=== PATIENT | female | born 1955 | race Caucasian/White ===

== ENCOUNTER 2020-11-23 09:14 | Emergency (ER) | payer OTHER, SELFPAY ==
--- NOTE | 2020-11-23 08:45 | ECG_ITS ---
[facility], 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 Measurements Intervals [place] Rate: 102 P: 27 IL: 142 QRS: -7 QRSD: 74 T: 179 QT: 396 QTc: 517 Interpretive Statements SINUS TACHYCARDIA LEFT VENTRICULAR HYPERTROPHY AND ST-T CHANGE [VOLTAGE CRITERIA PLUS ST/T ABNORMALITY] POSSIBLE SEPTAL MYOCARDIAL INFARCTION , OF INDETERMINATE AGE [30 ms Q WAVE IN V1/V2] No previous ECG available for comparison Electronically Signed On 11-23-2020 21:31:10 SAFETY INVESTIGATOR/CAUSE ANALYST by Gerald Goldberg M.D. [email or web address].Entassotyler holmes memorial hospitalITN Energy Systemsmemorial health system.[employer]/store/NU/[id number] f
[2020-11-23 09:16] VITALS: BP 151/111; PULSE 116; RESP 18; TEMP 36.8; O2SAT 97; BMI 31.1
[2020-11-23] MEDS: lactated ringers 1,000 ML 999 ML IV (09:47)
[2020-11-23] MEDS: ondansetron 2 mg/ML SDV 2 mL 4 MG IVP (09:49)
[2020-11-23 09:59] LABS: Hematocrit 37.4 % (37.0-47.0); Hemoglobin 12.9 g/dL (11.5-15.3); Mean Corpuscular HGB Conc 34.5 g/dL (30.0-36.0); Mean Corpuscular Hemoglobin 30.8 pg (28.0-34.0); Mean Corpuscular Volume 89.3 fL (81-99); Mean Platelet Volume 9.3 fL (7.4-10.4); Platelet Count 288 10^3/cmm (130-400); Red Blood Count 4.19 10^6/uL (4.1-5.3); Red Cell Distribution Width 12.1 % (12.1-15.1); White Blood Count 13.5 10^3/uL (4.0-10.0)
[2020-11-23 10:11] VITALS: BP 131/79; PULSE 82; RESP 18; TEMP 36.8; O2SAT 98
--- NOTE | 2020-11-23 10:14 | ED_ITS ---
HPI - Chest Pain General: Chief Complaint: Chest Pain Stated Complaint: N/V, diarrhea since Mon. Time Seen by Provider: 11/23/20 09:16 History of Present Illness: HPI narrative: 64-year-old female in with concerns of nausea vomiting and diarrhea for the past 2 days. The patient has not felt well for the past couple weeks ever since starting lisinopril hydrochlorothiazide but the nausea vomiting diarrhea just started 2 days ago. She's had multiple episodes of nonbloody diarrhea today and 3-4 discrete episodes of nonbloody nonbilious vomit today. She hasn't run a fever. No recent antibiotics. She did have 1 prior episode in the remote past similar to this that was undiagnosed. Nobody else is sick. She hasn't eaten any questionable food or any other concerning symptoms. Associated symptoms: Reports nausea and vomiting; Deny abdominal pain, dyspnea or fever(s) Review of Systems General: Reports: 10 or more systems reviewed and unremarkable except in HPI and below Const: Denies: fever(s) or chills ENMT: Denies: throat pain Card: Denies: chest pain Resp: Denies: dyspnea GI: Reports: nausea, vomiting and diarrhea; Denies: abdominal pain, hematemesis, coffee ground emesis, dysphagia, heartburn, early satiety, constipation, bloating, GI cramping, rectal pain, hematochezia, melena, mucus in stool or white/light colored stool : Denies: flank pain, difficulty voiding or dysuria Physical Exam Const: COMMON NORMALS: no acute distress, patient oriented x3 and no limitations HENMT: COMMON NORMALS: normocephalic HEAD & SCALP: normal to inspection and normocephalic Eye: COMMON NORMALS: EOMs intact bilaterally and no scleral icterus Neck/C-Spine: COMMON NORMALS: full ROM, no lymphadenopathy and no JVD Chest: COMMONS NORMALS: normal inspection of the chest Resp: COMMON NORMALS: normal respiratory effort, No retractions and No use of accessory muscles Cardio: COMMON NORMALS: no JVD, regular rate and regular rhythm RATE: regular rate RHYTHM: regular rhythm GI: COMMON NORMALS: Normal to inspection, nondistended, normoactive bowel sounds present, Soft to palpation, non-tender, No hepatosplenomegaly present and no masses PALPATION: Yes Soft to palpation and Yes No hepatosplenomegaly present : COMMON NORMALS: Yes no CVA tenderness BLADDER/KIDNEY EXAM: Yes no CVA tenderness Back/Pelvis: COMMON NORMALS: no CVA tenderness Neuro: COMMON NORMALS: patient oriented x3 and CN's II-XII intact bilaterally Skin: COMMON NORMALS: no rashes or lesions noted and no wounds GENERAL SKIN EXAM: no rashes or lesions noted Course Vital Signs: Vital signs: Vital Signs Temperature 98.2 F 11/23/20 10:11 Pulse Rate 82 11/23/20 10:11 Respiratory Rate 18 11/23/20 10:11 Blood Pressure 131/79 11/23/20 10:11 Pulse Oximetry 98 11/23/20 10:11 MDM - Chest Pain MDM Narrative: Medical decision making narrative: 64-year-old female nausea vomiting and diarrhea. Discussed the differential diagnosis to include electrolyte abnormalities, viral illness, bacterial gastroenteritis among others. Recommend IV fluids and antibiotics send routine labs and serial reexamination Lab Data: Labs: Lab Results 11/23/20 11/23/20 Range/Units 09:45 09:45 WBC 13.5 H (4.0-10.0) 10^3/ uL RBC 4.19 (4.1-5.3) 10^6/u L Hgb 12.9 (11.5-15.3) g/dL Hct 37.4 (37.0-47.0) % MCV 89.3 (81-99) fL MCH 30.8 (28.0-34.0) pg MCHC 34.5 (30.0-36.0) g/dL RDW 12.1 (12.1-15.1) % Plt Count 288 (130-400) 10^3/c mm MPV 9.3 (7.4-10.4) fL Total Counted 100 (0-100) Absolute Neutrophi ls 8.8 H (1.4-6.5) 10^3/c mm Segmented Neutroph ils 62 % Abs Segm Neuts (Ma n) 8.4 H (1.6-7.1) 10/cmm Band Neutrophils 3.0 % Abs Band Neuts (Ma n) 0.4 (0.0-1.2) 10^3/c mm Lymphocytes (Manua l) 14 % Monocytes (Manual) 20.0 % Absolute Monocytes 2.7 H (0.1-0.6) 10^3/c mm Eosinophils (Manua l) 1 % Absolute Eosinophi ls 0.1 (0.0-0.7) 10^3/c mm Platelet Estimate Normal (Normal) Sodium 127 L (136-145) mmol/L Potassium 4.0 (3.5-5.1) mmol/L Chloride 91 L (98-107) mmol/L Carbon Dioxide 22 (22-29) mmol/L Anion Gap 18.0 (5-19) BUN 18 (8-23) mg/dL Creatinine 1.2 H (0.5-0.9) mg/dL GFR Calculation 45.5 L (90-130) mL/min Glucose 119 H (65-115) mg/dL Calculated Osmolal ity 267 L (285-295) mOsm/k g Calcium 9.8 (8.5-10.5) mg/dL Discharge Plan Discharge Patient Disposition: Home Clinical Impression: Nausea vomiting and diarrhea Condition: Stable Prescriptions: New ondansetron HCl [Zofran] 4 mg tablet 4 mg PO Q8H 4 Days Qty: 12 RF: 0 No Action gabapentin 600 mg Tablet 600 mg PO TID RF: 0 etodolac 200 mg Capsule 200 mg PO BID@08,19 RF: 0 cetirizine 10 mg Tablet 10 mg PO DAILY@19 RF: 0 diltiazem HCl 240 mg Capsule,Extended Release 24hr 240 mg PO DAILY@08 RF: 0 omeprazole 40 mg Capsule,Delayed Release(Dr/Ec) 40 mg PO DAILY@08 RF: 0 montelukast 10 mg Tablet 10 mg PO DAILY@19 RF: 0 hydroxyzine HCl 25 mg Tablet 25 mg PO TID PRN (Reason: anxiety) RF: 0 albuterol sulfate 90 mcg/actuation Hfa Aerosol Inhaler 2 puff INHALATION QID PRN (Reason: Shortness Of Breath) RF: 0 fluoxetine 20 mg Capsule 60 mg PO DAILY@08 RF: 0 Wellbutrin XL 300 mg Tablet Extended Release 24 Hr 300 mg PO DAILY@08 RF: 0 diclofenac sodium 1 % Gel 4 g TOPICAL QID PRN (Reason: Pain) RF: 0 Discharge Orders: Discharge ED (Routine); Ordered 11/23/20 Ordered By: Estuardo Bender Referrals: Phylicia Guzman FNP [Primary Care Provider] - Discharge Diet: Full LIquid Discharge Activity: Limit activity as instructed Patient Instructions: Acute Nausea and Vomiting (ED) Coding Level of Care Code ED Ore Crushing Dust Collector for Chg Fwd Exam Comprehensive
[2020-11-23 10:41] VITALS: BP 144/85; PULSE 105; RESP 18; O2SAT 96
[2020-11-23 10:43] LABS: Blood Urea Nitrogen 18 mg/dL (8-23); Calcium 9.8 mg/dL (8.5-10.5); Carbon Dioxide 22 mmol/L (22-29); Chloride 91 mmol/L (98-107); Creatinine Clr Calc Pharmacy 46.7357; Glomerular Filtration Rate 45.5 mL/min (90-130); Glucose 119 mg/dL (65-115); Osmolality Calculated 267 mOsm/kg (285-295); Sodium 127 mmol/L (136-145)
[2020-11-23 10:59] LABS: Absolute Eosinophils 0.1 10^3/cmm (0.0-0.7); Absolute Neutrophil 8.8 10^3/cmm (1.4-6.5); Absolute Segmented Neutrophil 8.4 10/cmm (1.6-7.1); Band Neutrophils Absolute 0.4 10^3/cmm (0.0-1.2); Eosinophils 1 %; Lymphocytes 14 %; Monocytes Absolute 2.7 10^3/cmm (0.1-0.6); Platelet Estimate Normal (Normal); Segmented Neutrophils 62 %; Total Cells Counted 100 (0-100)
[2020-11-23 11:11] VITALS: BP 113/78; PULSE 105; RESP 18; O2SAT 96
[2020-11-23 11:20] VITALS: BP 113/78; PULSE 105; RESP 18; O2SAT 96
== END 2020-11-23 11:22 | disposition home or self-care (01) ==
PROVIDERS: Emergency Provider Family Medicine; PCP Nurse Practitioner
DX: R11.2 Nausea with vomiting, unspecified (principal); R19.7 Diarrhea, unspecified
CPT/HCPCS: 12345; 80048; 85007; 85027; 93005; 96361; 96374; 96375; 99283; J2405

== ENCOUNTER → 2021-01-05 10:25 | Outpatient (BNVA) | payer OTHER, SELFPAY | PROVIDERS: PCP Nurse Practitioner; Referring Provider Family Medicine; Visit Provider Specialist | DX: M25.561 Pain in right knee (principal); M25.562 Pain in left knee | CPT/HCPCS: 73560; 73565 ==

== ENCOUNTER 2021-02-15 06:00 | Outpatient (RCR) | payer OTHER, SELFPAY | END 2021-03-01 23:59 | disposition home or self-care (01) | LOC: APT 06:00 | PROVIDERS: PCP Nurse Practitioner; Referring Provider Specialist; Visit Provider Specialist | DX: M25.561 Pain in right knee (principal) | CPT/HCPCS: 97161 ==

== ENCOUNTER 2021-03-31 20:10 | Inpatient (IN) | payer OTHER, SELFPAY ==
[2021-03-31 20:11] VITALS: BP 168/98; PULSE 96; RESP 24; TEMP 36.7; O2SAT 98; BMI 32.8
--- NOTE | 2021-03-31 20:17 | XRR_ITS ---
PROCEDURE INFORMATION: Exam: XR Right Shoulder Exam date and time: 03/31/2021 8:29 PM Age: 65 years old Clinical indication: Pain; Shoulder; Right; Prior surgery; Additional info: RT shoulder injury TECHNIQUE: Imaging protocol: XR Right shoulder. Views: 2 or more views. Total images: 3 COMPARISON: CR XR knees AP WB w RT lmt ORTH 01/05/2021 10:31 AM FINDINGS: Bones/joints: First degree AC separation. No visible fracture. Old mid shaft right humerus fracture with intramedullary master and screw arthrodesis with coarse exuberant healing. Soft tissues: Unremarkable for age. XR/XR shoulder RT min 2V* [id number] IMPRESSION: 1. First degree AC separation age indeterminate. 2. Old mid shaft humerus fracture.
--- NOTE | 2021-03-31 20:26 | PC.NURSE ---
sitter at bedside with patient due to suicidal thoughts
--- NOTE | 2021-03-31 20:31 | ECG_ITS ---
[facility] Test Date: 2021-03-31 Pat Name: Hannah Mchugh Department: Room: Gender: Female Mother Helper: : 1955 Requested By: Yuki Noble Order Number: [id number] Reading MD: SMILEY LEIGH Measurements Intervals [place] Rate: 90 P: 52 RI: 195 QRS: -18 QRSD: 92 T: 49 QT: 391 QTc: 479 Interpretive Statements SINUS RHYTHM MODERATE VOLTAGE CRITERIA FOR LVH, CONSIDER NORMAL VARIANT [MEETS CRITERIA IN ONE OF: R(aVL), S(V1), R(V5), R(V5/V6)+S(V1)] POSSIBLE SEPTAL MYOCARDIAL INFARCTION , PROBABLY OLD [30 ms Q WAVE IN V1/V2] Compared to ECG 11/23/2020 09:27:31 Sinus tachycardia no longer present ST (T wave) deviation no longer present Myocardial infarct finding still present Electronically Signed On 04-02-2021 22:30:20 CDT by SMILEY LEIGH [email or web address] community hospitalNabsyswestern reserve hospital.[employer]/store/[id number]
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
[2021-03-31 21:10] LABS: Add Urine Microscopic? NO; Charge for UA Resulting for Rev
[2021-03-31 21:11] LABS: Basophils % 0.5 %; Eosinophils # 0.1 10^3/uL (0.0-0.8); Hematocrit 39.5 % (37.0-47.0); Hemoglobin 13.6 g/dL (11.5-15.3); Lymphocytes # 3.2 10^3/uL (0.8-4.8); Lymphocytes % 36.6 %; Mean Corpuscular HGB Conc 34.4 g/dL (30.0-36.0); Mean Corpuscular Hemoglobin 31.8 pg (28.0-34.0); Mean Corpuscular Volume 92.3 fL (81-99); Mean Platelet Volume 9.5 fL (7.4-10.4); Monocytes # 0.9 10^3/uL (0.2-0.9); Monocytes % 9.8 %; Neutrophils # 4.55 10^3/uL (1.8-7.7); Neutrophils % 51.9 %; Nucleated Red Blood Cells % 0 %; Platelet Count 272 10^3/cmm (130-400); Red Blood Count 4.28 10^6/uL (4.1-5.3); Red Cell Distribution Width 12.3 % (12.1-15.1); White Blood Count 8.8 10^3/uL (4.0-10.0)
[2021-03-31 21:13] LABS: Bilirubin Urine Neg (Negative); Blood Urine Neg (Negative); Glucose Urine UA Norm (Normal); Ketones Urine Negative (Negative); Leukocyte Esterase Urine Negative (Negative); Nitrate Urine Negative (Negative); Protein Urine Neg (Negative); Specific Gravity, Urine 1.005 (1.005-1.030); Urine Appearance Clear (CLEAR); Urine Color Yellow (Yellow); Urobilinogen Urine Norm (Negative); pH Urine 5 (5-7)
[2021-03-31 21:23] LABS: Amphetamines Screen Urine Negative (Negative); Barbiturates Screen Urine Negative (Negative); Benzodiazepines Screen Urine Negative (Negative); Cocaine Screen Urine Negative (Negative); Opiate Screen Urine Negative (Negative); PCP Screen Urine Negative (Negative); THC Screen Urine Negative (Negative)
[2021-03-31 21:27] LABS: Acetaminophen < 5.0 ug/mL (10-30); Alanine Aminotransferase 29 U/L (0-33); Albumin Level 4.1 g/dL (3.5-5.2); Alcohol Level 188 mg/dL (0-10); Alkaline Phosphatase 106 IU/L (35-105); Anion Gap 20.3 (5-19); Aspartate Amino Transferase 40 U/L (0-32); Blood Urea Nitrogen 9 mg/dL (8-23); Calcium 8.6 mg/dL (8.5-10.5); Carbon Dioxide 17 mmol/L (22-29); Chloride 93 mmol/L (98-107); Globulin 2.9 g/dL (1.3-4.6); Glomerular Filtration Rate 84.5 mL/min (90-130); Glucose 87 mg/dL (65-115); Lipase 42 U/L (13-60); Osmolality Calculated 262 mOsm/kg (285-295); Potassium 3.3 mmol/L (3.5-5.1); Salicylate < 0.3 mg/dL (3-10); Sodium 127 mmol/L (136-145); Total Bilirubin 0.3 mg/dL (0.15-1.2)
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
--- NOTE | 2021-03-31 22:07 | XRR_ITS ---
PROCEDURE INFORMATION: Exam: XR Chest Exam date and time: 03/31/2021 10:32 PM Age: 65 years old Clinical indication: Shortness of breath; Additional info: Hyponatremia TECHNIQUE: Imaging protocol: XR of the chest. Views: 1 view. Total images: 1 COMPARISON: CR XR knees AP WB w RT lmt ORTH 01/05/2021 10:31 AM FINDINGS: Lungs: No visible active interstitial or alveolar airspace disease. Azygos lobe which is a normal anatomical variant. Pleural spaces: Unremarkable. No pleural effusion. No pneumothorax. Heart/Mediastinum: Cardiac structures and configuration with arteriosclerosis. Bones/joints: Right humerus intramedullary master. Soft tissues: Heavy body habitus. XR/XR chest 1V portable [id number] IMPRESSION: Nonacute.
[2021-03-31] MEDS: sodium chloride 0.9% 1,000 ML 999 ML IV (22:16)
[2021-03-31 22:32] LABS: ABG PH Result 7.49 (7.35-7.45); Alveolar-Arterial Oxygen Gradi 2.7 mmHg (5-10); Arterial Blood Gas Hematocrit 41.3 % (37-47); Base Excess ABG -5.9 mmol/L (-2.0-2.0); Blood Gas Allen Test Pos; Blood Gas Operator Identificat IB; Blood Gas Sample Site Radial, left; Blood Gas Sample Type Arterial; Carboxyhemoglobin 0.4 %THgb (0.4-20.1); HCO3 ABG 15.2 mmol/L (22-26); HGB O2 Sat 97.7 % (95-100); Ionized Calcium Level - ABG 1.2 mmol/L (1.1-1.4); Methemoglobin 0.5 % (0.4-1.5); Oxygen Device ROOM AIR; Oxygen Saturation ABG 98.6; Potassium Level - ABG 2.8 mmol/L (3.5-5.0); Total Hemoglobin 13.5 g/dL (12-16)
--- NOTE | 2021-04-01 00:58 | PC.NURSE ---
Patient refusing to go down to neuro-psych unit. Patient states she wants to go home. Patient is on a 96 hr hold.
[2021-04-01 01:26] VITALS: BP 212/140; PULSE 92; RESP 18; TEMP 36.6; O2SAT 100
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
[2021-04-01 06:00] VITALS: BP 218/140; PULSE 118; RESP 17; TEMP 36.7; O2SAT 98
[2021-04-01] MEDS: LORazepam 1 mg Tablet PO ×2 (06:42→21:20)
--- NOTE | 2021-04-01 06:51 | PC.NURSE ---
prn ativan Patient's BP elevated 218/140. patient tearful and sad, also states she is anxious to go home and get things figured out. Physician ordered Ativan 1mg PO now and every 4 hours for withdrawal. Will monitor for effectiveness.
[2021-04-01] MEDS: pantoprazole DR 40 mg Tablet PO (08:30)
[2021-04-01] MEDS: buPROPion XL (24 HR) 300 mg Tablet PO (08:30)
[2021-04-01] MEDS: dilTIAZem ER (24HR) 240 mg Capsule PO (08:30)
[2021-04-01] MEDS: fluoxetine 20 mg Capsule 60 MG PO (08:30)
[2021-04-01] MEDS: multivitamin therapeutic Tablet 1 TAB PO (08:30)
[2021-04-01] MEDS: thiamine 100 mg Tablet PO (08:30)
[2021-04-01] MEDS: folic acid 1 mg Tablet PO (08:30)
[2021-04-01] MEDS: gabapentin 300 mg Capsule 600 MG PO ×2 (08:31→16:54)
[2021-04-01] MEDS: hyDROXYzine 25 mg Capsule 50 MG PO (08:31)
--- NOTE | 2021-04-01 09:01 | PC.NURSE ---
NURSING NOTE DR LOGAN NOTIFIED OF CLIENTS B/P REQUESTED PER CHARGE NURSE HARDEEP IN REPORT THIS AM. NO NEW ORDERS GIVEN DR. LOGAN REPORTS TO CONTINUE TO MONITOR PT. AND HE WILL ASSESS PT UPON HIS ARRIVEAL TO THE UNIT.
[2021-04-01 10:23] VITALS: PULSE 107; RESP 18; O2SAT 98
[2021-04-01 14:00] VITALS: BP 181/86; PULSE 90; RESP 16; TEMP 37.1; O2SAT 99
[2021-04-01] MEDS: acetaminophen 325 mg Tablet 650 MG PO ×2 (14:35→18:43)
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
[2021-04-01] MEDS: montelukast sodium 10 mg Tablet PO (16:54)
[2021-04-01] MEDS: cetirizine 10 mg Tablet PO (16:54)
--- NOTE | 2021-04-01 20:30 | PC.NURSE ---
ciwa 15 Pt needs medication, med nurse notified, bp 170/98. Anxious, headache, sweating, mildly agitated. will continue to observe.
[2021-04-01 20:53] VITALS: BP 170/98; PULSE 96; RESP 18; TEMP 36.6; O2SAT 100
--- NOTE | 2021-04-01 21:14 | PC.NURSE ---
Ice pack/ shoulder and arm pain applied to reduce pain/swelling. will continue to observe.
--- NOTE | 2021-04-01 21:23 | PC.NURSE ---
Patient given 1mg Atavan PO per [place] protocol \915 score ) also for B/P of 170/98 Per M.D. order / request.
[2021-04-01 21:45] VITALS: PULSE 95; RESP 18; O2SAT 99
[2021-04-02] MEDS: acetaminophen 325 mg Tablet 650 MG PO ×3 (02:18→12:49)
[2021-04-02 06:00] VITALS: BP 160/103; PULSE 108; RESP 17; TEMP 36.8; O2SAT 95
[2021-04-02] MEDS: dilTIAZem ER (24HR) 240 mg Capsule PO (08:48)
[2021-04-02] MEDS: thiamine 100 mg Tablet PO (08:48)
[2021-04-02] MEDS: pantoprazole DR 40 mg Tablet PO (08:48)
[2021-04-02] MEDS: folic acid 1 mg Tablet PO (08:49)
[2021-04-02] MEDS: multivitamin therapeutic Tablet 1 TAB PO (08:49)
[2021-04-02] MEDS: gabapentin 300 mg Capsule 600 MG PO (08:49)
[2021-04-02] MEDS: fluoxetine 20 mg Capsule 60 MG PO (08:49)
[2021-04-02] MEDS: buPROPion XL (24 HR) 300 mg Tablet PO (08:49)
[2021-04-02 09:21] VITALS: PULSE 90; RESP 16; O2SAT 98
[2021-04-02 11:04] LABS: Basophils % 0.4 %; Eosinophils % 0.2 %; Hematocrit 41.5 % (37.0-47.0); Hemoglobin 13.7 g/dL (11.5-15.3); Lymphocytes # 2.3 10^3/uL (0.8-4.8); Lymphocytes % 27.3 %; Mean Corpuscular Hemoglobin 32.2 pg (28.0-34.0); Mean Corpuscular Volume 97.6 fL (81-99); Mean Platelet Volume 10.4 fL (7.4-10.4); Monocytes # 1.4 10^3/uL (0.2-0.9); Monocytes % 16.2 %; Neutrophils # 4.73 10^3/uL (1.8-7.7); Neutrophils % 55.5 %; Nucleated Red Blood Cells % 0 %; Platelet Count 240 10^3/cmm (130-400); Red Blood Count 4.25 10^6/uL (4.1-5.3); Red Cell Distribution Width 12.8 % (12.1-15.1); White Blood Count 8.5 10^3/uL (4.0-10.0)
[2021-04-02 11:29] LABS: Blood Urea Nitrogen 12 mg/dL (8-23); Carbon Dioxide 24 mmol/L (22-29); Chloride 99 mmol/L (98-107); Glomerular Filtration Rate 72.4 mL/min (90-130); Glucose 97 mg/dL (65-115); Osmolality Calculated 274 mOsm/kg (285-295); Sodium 132 mmol/L (136-145)
[2021-04-02 11:37] LABS: Anion Gap 12.7 (5-19); Potassium 3.7 mmol/L (3.5-5.1)
[2021-04-02 13:17] VITALS: PULSE 90; RESP 16; O2SAT 98
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
== END 2021-04-02 14:05 | disposition home or self-care (01) | DRG 881 ==
LOC: ER 22:03 → NP 23:30
PROVIDERS: Admitting Provider Psychiatry & Neurology Psychiatry; Emergency Provider Nurse Practitioner Family; PCP Nurse Practitioner; Visit Provider Psychiatry & Neurology Psychiatry
DX: F32.9 Major depressive disorder, single episode, unspecified (principal); R45.851 Suicidal ideations; F10.229 Alcohol dependence with intoxication, unspecified; Z91.5 Personal history of self-harm; Y04.2XXA Assault by strike against or bumped into by another person, initial encounter; S43.004A Unspecified dislocation of right shoulder joint, initial encounter; M17.11 Unilateral primary osteoarthritis, right knee; Z63.0 Problems in relationship with spouse or partner
CPT/HCPCS: 36415; 70450; 71045; 73030; 80048; 80051; 80053; 80306; 80307; 81003; 82330; 82805; 83690; 85025; 93005; 96360; 99285; J7030